=== PATIENT | female | born 1965 | race Caucasian/White ===

== ENCOUNTER → 2019-03-31 08:59 | Outpatient (CLI) | payer MEDICAID, SELFPAY ==
--- NOTE | 2019-03-31 09:00 | RAD_ITS ---
STUDY: X-RAY - CERVICAL SPINE REASON FOR EXAM: Female, 54 years old. Atraumatic neck pain. TECHNIQUE: 5 view(s) of the cervical spine were obtained on 6 images. COMPARISON: None FINDINGS: Normal anterior atlantoaxial articulation. Normal odontoid process. Normal cervical lordosis. Normal vertebral bodies and endplates. Intervertebral disc space narrowing at C5-6 with small osteophytes. Minimal anterior neural foraminal encroachment at C5-6 bilaterally. Diffuse uncovertebral and facet sclerosis. The soft tissue structures are unremarkable. RAD/Cerv Spine 4 or 5 Views IMPRESSION: Mild cervical spondylosis as described. Electronically Signed: Ranjit Clark MD at 19:13 EST , Service support ,
--- NOTE | 2019-03-31 09:00 | RAD_ITS ---
STUDY: X-RAY - LEFT SHOULDER REASON FOR EXAM: Pain, no recent injury. TECHNIQUE: 4 view(s) of the shoulder. COMPARISON: None. FINDINGS: Normal glenohumeral articulation. Normal acromioclavicular joint. Normal acromion. Normal humeral head and visualized proximal humerus. There is calcific tendinitis. Normal visualized pulmonary apex. RAD/Shoulder min 2 Views IMPRESSION: Calcific tendinitis. Electronically Signed: Kevin Marquez MD at 9:42 EST Tel , Service support ,
== END ==
PROVIDERS: Referring Provider Orthopaedic Surgery; Visit Provider Orthopaedic Surgery
DX: M75.32 Calcific tendinitis of left shoulder (principal); R20.0 Anesthesia of skin
CPT/HCPCS: 72050; 73030

== ENCOUNTER 2019-04-08 07:32 | Outpatient (RCR) | payer MEDICAID, SELFPAY ==
[2019-03-31 09:00] VITALS: BMI 36.0
--- NOTE | 2019-04-08 09:45 | HP.PTEVAL_ITS ---
Patient's Visit Information CRYSTAL GARCIA is a 54 year old F referred to Physical Therapy by Dr. Taina Stephens DO with a diagnosis of Left RTC Weakness and Pain. Date of Evaluation: 04/08/19 Physical Therapist: Katheryn Jimenez DPT - Visit Plan Frequency: 1x/Week Duration: 3 Weeks Plan: Patient to perform HEP will come back in 3 weeks for re-assessment and progression. HEP given 04/08: Postural awareness- Mid row, LAE, add, IR, er, Scap retractions, sidlying ER, supine serratus punch - Subjective Findings: Fell about 25 years ago and her left shoulder has never been the same. She has had a lot of problems with it in the past year. She reports the pain is dull and achy and it keeps her from sleeping at night. Pain is located around the whole and into the scapula. She had an injection which has helped increasing her to 80% back to normal. At night it radiates to the hand. Worst: 09/25 Agg: night Eases: injection, sleeping pills, advil Best: 02/25. If she has slept on it its pretty aggravated- wants to sleep on her side but lately has been on her back with pillows. 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 No MARTINI. neck pain, blurred vision or dizziness. Right hand dominate. 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 Has had x-rays which were negative of the shoulder and cervical spine but no MRI at this time PMhx: none Meds: none. No PT on this shoulder - Objective Posture: FH, RS- increased kyphosis- can correct but does not maintain. Gait: no deviation noted- good arm swing and trunk rotation. Palpation: not tender. ROM: wfl in all planes of left UE and cervical spine. Strength: Scap: fair, Shoulder: 4+/5 throughout no pain, Elbow/Wrist/Hand: 5/5. Special Test: Salmeron Eliecer: positive, Neer: positive, Lift off: negative, Empty can: negative - Goals Goal 1:: Patient will be I with HEP and progresion Goal Time Frame: 4-6 Weeks Goal 2:: Patient will maintain proper posture t/o tx session to demo increased scap s/s Goal Time Frame: 4-6 Weeks Goal 3:: Patient will report 0/10 pain with sleeping Goal Time Frame: 4-6 Weeks - Rehabilitation Potential Physical Therapy Diagnosis: Patient presents with hypomobility of the left shoulder- she has decreased scapular s/s and endurance leading to poor posture and increased pain with ADL's. Rehabilitation Potential: Good - Anticipated Interventions Patient/Client Instruction: Educate patient on: Benefits of Fitness Program Therapeutic Exercise to Include: Strength training, Endurance training, Body mechanics, Postural training, Scapular Strength/Stabilization For the Purpose of:: To improve muscle performance and motor function Thank you for the opportunity to evaluate your patient. For Medicare and Medicare HMO plans, please review the plan of care and approve it. It will need to be FAXED BACK to us at [phone] for Medicare purposes. For Medicare only, by signing this I certify the plan of care. Please let me know if there are questions or concerns regarding this plan of care. Physician Signature: Date:
--- NOTE | 2019-06-28 11:16 | HP.PT.NRP ---
CRYSTAL GARCIA was seen in my office for initial evaluation on 04/08/19. The following Plan of Care was established for this patient: Initial Frequency: 1x/Week Initial Duration: 3 Weeks Patient/Client Instruction: Educate patient on: Benefits of Fitness Program Therapeutic Exercise to Include: Strength training, Endurance training, Body mechanics, Postural training, Scapular Strength/Stabilization For the Purpose of:: To improve muscle performance and motor function This patient was last seen in our office . Pertinent comments regarding their Physical therapy will appear below: Patient has not attended physical therapy in over 8 weeks- appropriate for d/c and return to MD as appropriate. At this point I will be discontinuing this patient from physical therapy. I would be happy to see this patient again in the future if found appropriate by the physician. Thank you! MIKEY GilesT
== END 2019-04-08 19:00 | disposition home or self-care (01) ==
LOC: PT 07:32
PROVIDERS: Referring Provider Orthopaedic Surgery; Visit Provider Orthopaedic Surgery
DX: R29.898 Other symptoms and signs involving the musculoskeletal system (principal); M25.512 Pain in left shoulder
CPT/HCPCS: 97110; 97161